=== PATIENT | female | born 1940 | race African-American/Black ===

== ENCOUNTER 2017-08-07 06:25 | Inpatient (IN) | payer OTHER ==
[2017-08-02 13:58] VITALS: BMI 24.9
[2017-08-07] MEDS ORDERED: TRANEXAMIC ACID 1000 MG/10 ML VIAL IVPUSH ONE (07:08)
[2017-08-07] MEDS ORDERED: CEFAZOLIN 1 GM/D5W 1 GRAM/50 ML BAG IVPB ONE (07:08)
[2017-08-07] MEDS ORDERED: GABAPENTIN 300 MG CAPSULE (FP) PO ONE (07:08)
[2017-08-07] MEDS ORDERED: CELECOXIB 200 MG CAPSULE PO ONE (07:08)
[2017-08-07] MEDS ORDERED: EPINEPHrine/PF 1 MG/1 ML (1:1,000) AMPULE ONE (07:18)
[2017-08-07] MEDS ORDERED: DEXAMETHASONE SOD PHOSPHATE/PF 10 MG/ML SDV ONE (07:18)
[2017-08-07] MEDS ORDERED: MIDAZOLAM HCL 2 MG/2 ML SINGLE DOSE VIAL ONE (07:19)
[2017-08-07] MEDS ORDERED: ROPIVICAINE 0.2%/MORPH PF/KETOROLAC - 51ML DISP.SYRINGE IA ONE ×2 (07:48→11:59)
[2017-08-07] MEDS ORDERED: VANCOMYCIN 1,000 MG VIAL (RESTRICTED TO ID ONLY) ONE ×2 (07:48→07:58)
[2017-08-07] MEDS ORDERED: PROPOFOL 20 ML ONE ×4 (08:39→11:20)
[2017-08-07] MEDS ORDERED: DEXAMETHASONE SOD PHOSPHATE 4 MG/1 ML VIAL ONE (08:48)
[2017-08-07] MEDS ORDERED: ceFAZolin SODIUM 1 GM VIAL ONE ×2 (08:48→12:20)
[2017-08-07] MEDS ORDERED: ONDANSETRON 4 MG/2 ML VIAL ONE (08:48)
[2017-08-07] MEDS ORDERED: TRANEXAMIC ACID 1000 MG/10 ML VIAL ONE (08:48)
[2017-08-07] MEDS ORDERED: PHENYLEPHRINE HCL 10 MG/1 ML SINGLE DOSE VIAL ONE (09:04)
[2017-08-07] MEDS ORDERED: VANCOMYCIN 1,000 MG VIAL (RESTRICTED TO ID ONLY) IVPB ONE (11:59)
[2017-08-07] MEDS ORDERED: GUM MASTIC/STORAX/MSAL/ALCOHOL 1 DRP DROPSBTL MC ONE (12:19)
--- NOTE | 2017-08-07 12:35 | OP ---
Operative Note - Note: Operative Date: 08/07/17 Pre-Operative Diagnosis: Left hip osteoarthritis, DJD Operation: Left total hip replacement Post-Operative Diagnosis: Same as Pre-op Surgeon: Daryl Beauchamp Metal Cutter: Dominic Healy Anesthesiologist/LAB TECHNOLOGIST: Mc Coy Anesthesia: Spinal Estimated Blood Loss (mls): 150 Fluid Volume Replaced (mls): 1,000 Operative Report Dictated: Yes
[2017-08-07] MEDS ORDERED: ONDANSETRON 4 MG/2 ML VIAL IVPUSH PRN ×2 (12:36→12:52)
[2017-08-07] MEDS ORDERED: MAGNESIUM HYDROX 2400MG/30ML ORAL SUSPENSION 30 ML CUP PO PRN (12:36)
[2017-08-07] MEDS ORDERED: MAG HYDROX/AL HYDROX/SIMETH 30 ML UNIT-DOSE CUP PO PRN (12:36)
--- NOTE | 2017-08-07 12:36 | SURG ---
Surgery Tradeshow Worker Note Tradeshow Worker: Dominic Healy PA-C Date of Service: 08/07/17 Diagnosis: Left hip osteoarthritis, DJD Procedure: Left total hip replacement I was present for the entirety of the operative procedure. For further detail, please refer to operative report. Visit type - Case Type Case Type: Scheduled Admission - New patient This patient is new to me today: Yes Date on this admission: 08/07/17
[2017-08-07] MEDS ORDERED: LACTATED RINGERS SOLUTION 1,000 ML IV SCH (12:45)
[2017-08-07] MEDS ORDERED: oxyCODONE HCL 5 MG TABLET PO PRN ×2 (12:52)
[2017-08-07] MEDS ORDERED: ACETAMINOPHEN 325 MG TABLET (FP) PO PRN (12:52)
[2017-08-07] MEDS ORDERED: PROMETHAZINE HCL 25 MG/1 ML VIAL IVPUSH PRN (12:52)
[2017-08-07] MEDS ORDERED: ACETAMINOPHEN 325 MG TABLET (FP) ONE (14:07)
[2017-08-07] MEDS ORDERED: VANCOMYCIN 1 GRAM (PRE-DOCKED) 1,000 MG/250 ML BAG IVPB ONE ×2 (21:00→22:00)
[2017-08-07] MEDS: CEFAZOLIN 1 GM/D5W 1 GRAM/50 ML BAG IVPB SCH (21:45)
[2017-08-07] MEDS ORDERED: GABAPENTIN 300 MG CAPSULE (FP) PO SCH (22:00)
[2017-08-07] MEDS: LABETALOL HCL 100 MG TABLET (FP) PO SCH (22:08)
[2017-08-07] MEDS: SENNOSIDES/DOCUSATE COMBO (SENNA PLUS) TABLET (UD) PO SCH (22:10)
[2017-08-07] MEDS: ASCORBIC ACID 500 MG TABLET (FP) PO SCH (22:11)
--- NOTE | 2017-08-08 01:14 | OP ---
DATE OF OPERATION: 08/07/2017 SURGEON: Daryl Beauchamp MD RETURNING OFFICER: Dominic Healy PA-C PREOPERATIVE DIAGNOSES: 1. Left hip protrusio acetabuli. 2. Osteoarthritis, left hip. POSTOPERATIVE DIAGNOSES: 1. Left hip protrusio acetabuli. 2. Osteoarthritis, left hip. SURGICAL PROCEDURE: Left total hip replacement. ANESTHESIA: Spinal and sedation. POSITION: Right lateral decubitus. INCISION: Direct superior approach. ESTIMATED BLOOD LOSS: 150 mL. INTRAVENOUS FLUIDS: See anesthesia record. SPECIMEN: Left femoral head. DRAINS: None. COMPLICATIONS: None. URINE OUTPUT: None. BACTERIOLOGY: None. TRANSFUSIONS: None. CLOSURE: Number 1 and 2-0 Vicryl and 3-0 Monocryl. INDICATIONS: The patient is a 77-year-old female who presented to our outpatient orthopedic clinic with history, physical examination, and radiographic imaging findings concerning diagnostic for osteoarthritis of the left hip. The patient was indicated for left total hip replacement in order to promote early motion and mobilization and to prevent complications associated with a sedentary lifestyle. The patient was identified in the holding area by her arm band. Long discussion was held with the patient in the presence of her family regarding the risks, benefits, and alternatives of the above mentioned procedure. The risks include but are not limited to pain, bleeding, infection, damage to surrounding structures (including nerves, blood vessels, skin ligaments, tendon, and bone), wound complications, failure of hardware/implant/reduction, need for further surgery, blood clots, myocardial infarction, pulmonary embolism, anesthesia complications, compartment syndrome, blood loss, length, loss of function, and . Benefits as mentioned above. Alternatives include no surgery. All questions were answered. The patient understood and agreed to the procedure. Informed consent was obtained, witnessed and verified. The patient's correct operative limb, the left lower extremity, was marked and the patient was taken to the operating room where she was seen by anesthesia and nursing staff. DESCRIPTION OF PROCEDURE: The patient was brought to the operating room and placed on the OR table and secured with the safety strap. Consent and the operative site were again verified with the patient, nursing, and anesthesia staff. Spinal anesthesia and sedation were then administered without complications. Then 2 g of IV Ancef and 1 g of IV vancomycin was then administered. A timeout was done, led by the attending surgeon. Preoperative orthopedic examination revealed a retroverted pelvis (an extended pelvis) with fixed flexion deformity of the hips and minimal external limb internal rotation of the left hip. Patient was positioned in the right lateral decubitus position with all bony prominences well padded. The limb was secured using a [place]-type frame. The operative site was then prepped and draped in the standard sterile fashion. Timeout was again done and the case began. A standard direct superior approach was utilized to access the left hip. The incision was maintained at approximately 10 cm. The incision was oriented from the posterior superior corner of the greater trochanter, extending proximally in line with the gluteus sheng muscle fibers. Sharp incision was taken through the skin followed by electrocautery dissection through the subcutaneous dermal tissue as well as fat the layer of the gluteus sheng muscle fascia. The fascia was incised in plane with the gluteus sheng muscle fibers, which were in the direct line and trajectory of the overlying incision. The Bacon elevator was then introduced to split the muscle fibers in line with one another, such that the underlying periarticular fat pad was exposed. Next, retractors were used under the superior and inferior bellies of the dissected gluteus sheng muscle, exposing the underlying fat pad. The fat pad was then excised off of the short external rotators of the hip as well as the inferior border of the gluteus medius muscle. The gluteus medius muscle was then retracted proximally using a retractor. The rectus muscle and the pyriformis tendon were also retracted. Next, the obturator internus tendon was isolated and released from its insertion on the posterolateral aspect of the greater trochanter. This tendon was then tagged with an Ethibond style suture and tied to the skin near the apex of the incision acting as a sling to house and protect the reflected and posteriorly retracted sciatic nerve. Next, a capsulotomy was made in crescentic fashion into the hip joint capsule. Hemostasis was achieved with electrocautery throughout the procedure. The capsular leaflets were reflected both proximally and distally. Next, the acetabular labrum was excised in part. After this, the hip was dislocated and an oscillating saw was used to make a femoral neck cut according to Sir Keegan Mathews's principles of making a femoral neck cut in a total hip replacement. Next, the femoral head was removed after a threaded Steinmann pin was driven into the femoral head on power. After this, the Lembert retractor was introduced into the periacetabular soft tissue and bone bed so as to facilitate exposure of the acetabulum. The pulvinar was then excised using electrocautery from the floor and medial wall of the acetabulum. It was apparent at this time that the hip was partially arthrofibrosed. This patient also was suffering from debilitating protrusio acetabuli on the left side. This was noted by the increased asymmetric depth with acetabular bone bed relative to a much narrower width. Next, reamers were introduced in increasing incremental fashion, starting with 43 mm and working up to 63 mm. A hemispherical ream of the bone bed was achieved without penetrating or piercing the already thin medial wall of the acetabulum. Next, a 64 trial cup was seated with solid fixation and this was followed by a 64-mm cluster Erlinda Trident cup. A 36-mm neutral liner was then introduced as well. Next, attention was turned to the femur where a box cut osteotome was used to initiate entrance into the femoral canal. Next, a canal finder was introduced on plower, once again to facilitate the entrance into the proximal femur. A lateralizing rasp was utilized to lateralize the bony preparation into the medial aspect of the greater trochanter. Next, Erlinda Accolade II system broaches were introduced in increasing size fashion from 0 up to 4. Gentle mallet strikes were used to deliver the broaches into place. Next, the broach handle was removed. A standard offset modular neck trial was fixed to the broach followed by a -5 mm head. Open reduction was then performed. The hip was taken through a range of motion and stability test and found to be completely stable at 90 degrees of flexion, 40 degrees of abduction, and 40 degrees of internal rotation. There was no sign of subluxation or dislocation in any of those positions. An AP pelvis radiograph was obtained at this point in the case to help us assess leg length and compartment orientation. All trial components were then removed and the number 4 Erlinda Accolade II stem was delivered into the femoral bone bed. This was followed by a 36-mm Biolox ceramic head that was -5 mm in length. An open reduction was performed. Throughout the case the soft tissues had been thoroughly irrigated in between most steps. At this point, the wound was again copiously irrigated. The capsule was approximated and 3 simple interrupted sutures were used to perform a primary repair of the hip capsule. This was followed by an injection into the periarticular soft tissue bed of an analgesic cocktail. Next, vancomycin powder, approximately 0.5 g, was introduced into the wound. The short external rotator that had been reflected was then released from the skin and fixed to its origin on the posterior superior. Next the gluteus sheng fascia was close using number 1 Vicryl using simple interrupted sutures and this was followed by another round of copious irrigation as well as introduction of the residual remaining 0.5 g of vancomycin powder. The subcutaneous tissues were closed primarily using number 1 and 2-0 Vicryl sutures. The skin was closed using an intradermal 3-0 Monocryl stitch. Sterile compressive dressing was applied. Hemostasis had been assured before closure. The sponge and needle counts were correct at the end of the case. The attending was present and scrubbed throughout the entire case. The patient was then transferred to a hospital bed where an AP pelvis demonstrated good overall orientation of the implants as well as a reduced hip. Patient was then transferred to the recovery room in stable condition, having tolerated the procedure well. MD CELESTINO Awan/[id number]
[2017-08-08] MEDS: CEFAZOLIN 1 GM/D5W 1 GRAM/50 ML BAG IVPB SCH (05:43)
[2017-08-08 05:53] VITALS: BP 117/53; PULSE 61; TEMP 97.6
--- NOTE | 2017-08-08 08:26 | DS ---
Physical Exam: POD #1 Per RN notes, no acute events since surgery. States the patient never asked for any pain meds! Sitting in chair at bedside without any complaint. States she got oob and ambulated to bathroom without difficulty. Physical therapy note appreciated. Voiding spontaneously. Denies n/v/f/c, CP, SOB, numbness or tingling to LLE. Last Vital Signs Temp Pulse Resp BP Pulse Ox 97.6 F 61 18 117/53 100 08/08/17 04:00 08/08/17 04:00 08/08/17 07:40 08/08/17 04:00 08/08/17 07:40 PE GENERAL: awake, alert, and fully oriented, in no acute distress. HEAD: NC. AT LUNGS: CTA bilat anteriorly HEART: RRR LLE: Aquacel dressing c/d/i. 2+ pulses, warm, well-perfused, no edema. NEUROLOGICAL: CN II-XII grossly intact. Normal speech, gait not observed. PSYCH: Normal mood, normal affect. SKIN: Warm, dry, normal turgor, no rashes or lesions noted. LABS CBC, BMP 08/08/17 07:00 08/08/17 07:00 HOSPITAL COURSE: Date of Admission:08/07/17 Date of Discharge: 08/08/17 The patient was admitted to the Med-Surg Unit after an elective repair of their left hip OA/DJD. Now, s/p Left total hip replacement. Narcotic and non-narcotic pain management control was achieved with an oral and IV approach. Inna- operative IV ABX were administered. DVT prophylaxis was achieved with SCDs and early ambulation. The patient ambulated with Physical Therapy and no services were recommended upon discharge. Narcotic script were checked with [facility] RECORDS MANAGEMENT DIRECTOR prior to escribe. The discharge instructions and an oral pain management plan were reviewed with the patient. All questions answered. Above plan discussed with Dr. Beauchamp and agreed. Minutes to complete discharge: 20 Visit type - Case Type Case Type: Scheduled Admission
[2017-08-08 08:47] LABS: ANION GAP 8 (8-16); CALCIUM 7.6 mg/dl (8.4-10.2); CO2 26 mmol/L (22-28); CREATININE 1.5 mg/dl (0.6-1.3); GLUCOSE,RANDOM 118 mg/dl (74-106)
[2017-08-08 08:50] LABS: MCH 27.6 pg (25.7-33.7); MCHC 32.3 g/dl (32.0-36.0); MEAN CELL VOLUME 85.2 fl (80-96); MEAN PLT VOLUME 10.7 fl (7.5-11.1); PLATELET COUNT 126 K/MM3 (134-434); RDW 15.5 % (11.6-15.6)
[2017-08-08] MEDS ORDERED: PANTOPRAZOLE 40 MG TABLET (FP) PO SCH (10:00)
[2017-08-08] MEDS ORDERED: ASPIRIN 81 MG CHEWABLE TABLETS PO SCH (10:00)
[2017-08-08] MEDS ORDERED: MULTIVITAMINS (DAILY MVI) TABLET (FP) PO SCH (10:00)
[2017-08-08] MEDS ORDERED: PATIENT'S OWN MEDICATION (NON-FORMULARY) (Valsartan/Hydrochlorothiazide [Valsartan-Hctz 32 PO SCH (10:00)
[2017-08-08] MEDS ORDERED: CELECOXIB 200 MG CAPSULE PO SCH (10:00)
[2017-08-08] MEDS ORDERED: HYDROCHLOROTHIAZIDE 25 MG TABLET (FP) PO SCH (10:00)
[2017-08-08] MEDS ORDERED: VALSARTAN 160 MG TABLET (UD) PO SCH (10:00)
[2017-08-08] MEDS ORDERED: amLODIPine BESYLATE 10 MG TABLET (FP) PO SCH (10:00)
[2017-08-08] MEDS ORDERED: ATORVASTATIN CA 20 MG TABLET (FP) PO SCH (10:00)
[2017-08-08] MEDS: SENNOSIDES/DOCUSATE COMBO (SENNA PLUS) TABLET (UD) PO SCH (10:36)
[2017-08-08] MEDS: LABETALOL HCL 100 MG TABLET (FP) PO SCH (10:36)
[2017-08-08] MEDS: ASCORBIC ACID 500 MG TABLET (FP) PO SCH (10:37)
--- NOTE | 2017-08-08 12:40 | PN ---
Progress Note (short form) - Note Progress Note: Pot op day#1.S/P Left total hip replacement under spinal anesthesia with paraverteberal block uneventful.Patient stable and does not c/o pain.No any anesthesia related problem.Patient DC from the anesthesia care.
--- NOTE | 2017-08-12 13:53 | PATH ---
Surgical Pathology Report Patient Name: VIRGINIA PARKER Med. Rec. #: [id number] /Age/Gender: 1940 (Age: 77) / F Account: [id number] Location: [facility] MED-SURG Taken: 08/07/2017 Received: 08/07/2017 Reported: 08/12/2017 Physicians: Daryl Beauchamp M.D. Specimen(s) Received LEFT FEMORAL HEAD Clinical History B/L hip osteoarthritis Final Diagnosis FEMORAL HEAD, LEFT, TOTAL HIP REPLACEMENT: DEGENERATIVE JOINT DISEASE. Electronically Signed Darline Zaman M.D. Gross Description Received in formalin, labeled "left femoral head," is a 4.3 x 4.3 x 3.6 cm. femoral head with 1.2 cm in length portion of femoral neck attached. The margin of resection is smooth. There is a 3.7 cm in greatest dimension pitted area of eburnation present. The remaining articular surface is hubbard-yellow and focally granular. The underlying trabecular bone is yellow and hard. Stars Coordinator sections are submitted in one cassette, following decalcification. 08/08/2017 [facility]08/08/2017
== END 2017-08-08 13:16 | disposition home health service (06) | DRG 470 ==
LOC: FM/S 06:25
PROVIDERS: ADMIT Orthopaedic Surgery Orthopaedic Surgery of the Spine; ATTEND Orthopaedic Surgery Adult Reconstructive Orthopaedic Surgery
PROC: 0SRB0JA Replacement of Left Hip Joint with Synthetic Substitute, Uncemented, Open Approach (ICD-10-PCS; principal; 2017-08-07 08:00)
DX: M16.12 Unilateral primary osteoarthritis, left hip (principal); M24.7 Protrusio acetabuli; E11.9 Type 2 diabetes mellitus without complications; I10 Essential (primary) hypertension; Z86.73 Personal history of transient ischemic attack (TIA), and cerebral infarction without residual deficits; E78.00 Pure hypercholesterolemia, unspecified; Z87.891 Personal history of nicotine dependence
CPT/HCPCS: 36415; 73502-TC-LT; 80048; 85027; 88304-TC; 88311-TC; 94760; 97116-GP; 97162-GP

== ENCOUNTER 2018-07-23 05:59 | Inpatient (IN) | payer OTHER ==
[2018-07-21 12:09] VITALS: BMI 26.8
[~2018-07-23 05:59] MED LIST: CEFAZOLIN 2 GM in DEXTROSE 5%-WATER - 50 ML IVPB ONE; CEFAZOLIN 2 GM/D5W 2 GM/50 ML ML IVPB ONE; TRANEXAMIC ACID 1000 MG/10 ML VIAL IVPUSH ONE; VANCOMYCIN 1 GRAM (PRE-DOCKED) 1,000 MG/250 ML BAG IVPB ONE; VANCOMYCIN 1,000 MG in DEXTROSE 5%-WATER - 250 ML IVPB ONE
[2018-07-23] MEDS ORDERED: ceFAZolin SODIUM 1 GM VIAL ONE ×2 (07:09→10:21)
[2018-07-23] MEDS ORDERED: VANCOMYCIN 1,000 MG VIAL (RESTRICTED TO ID ONLY) ONE (07:09)
[2018-07-23] MEDS ORDERED: EPINEPHrine/PF 1 MG/1 ML (1:1,000) AMPULE ONE (07:10)
[2018-07-23] MEDS ORDERED: KETOROLAC TROMETHAMINE 60 MG/2 ML VIAL ONE (07:10)
[2018-07-23] MEDS ORDERED: BUPIVACAINE HCL/PF 2.5 MG/ML - 30 ML VIAL IJ ONE (07:11)
[2018-07-23] MEDS ORDERED: morphine CARPU-JECT 10 MG/1 ML DISP.SYRIN ONE (07:13)
--- NOTE | 2018-07-23 07:22 | HP ---
History & Physical Update - History History: No Change - Physical Physical: No Change - Assessment Assessment: No Change - Plan Plan: No Change (Full H&P i chart from 07/15/2018)
[2018-07-23] MEDS ORDERED: BUPIVACAINE HCL/PF (5 MG/ML) 30 ML VIAL IJ ONE (07:35)
[2018-07-23] MEDS ORDERED: DEXAMETHASONE SOD PHOSPHATE/PF 10 MG/ML SDV ONE (07:35)
[2018-07-23] MEDS ORDERED: LIDOCAINE HCL/PF 2% SDV 5ML VIAL ONE (07:37)
[2018-07-23] MEDS ORDERED: MIDAZOLAM HCL 2 MG/2 ML SINGLE DOSE VIAL ONE (07:41)
[2018-07-23] MEDS ORDERED: BUPIVACAINE HCL/PF 0.5% (5MG/ML) 10 ML VIAL ONE (08:11)
[2018-07-23] MEDS ORDERED: ONDANSETRON 4 MG/2 ML VIAL ONE ×2 (08:23→12:04)
[2018-07-23] MEDS ORDERED: ONDANSETRON 4 MG/2 ML VIAL IVPUSH PRN ×2 (09:35→11:09)
[2018-07-23] MEDS ORDERED: TRANEXAMIC ACID 1000 MG/10 ML VIAL ONE (10:26)
[2018-07-23] MEDS ORDERED: BENZOIN TINCTURE SWABSTICK TP ONE (10:55)
--- NOTE | 2018-07-23 11:08 | OP ---
Operative Note - Note: Operative Date: 07/23/18 Pre-Operative Diagnosis: Right hip DJD Operation: Right total hip replacement Implants: [place]. Cup - Trident II-Tritanium, 52mm; 1 x 25mm acetabular screw. Poly liner - 36mm, neutral. Stem - Accolade II, #4, 127 deg NSA. Head - 36mm, -5mm Delta Ceramic/Biolox Surgeon: Daryl Beauchamp Bail Bondsman: Jules Beauchamp Anesthesiologist/DENTAL HYGIENIST: Tata Bryant Anesthesia: Spinal Specimens Removed: Right femoral head Estimated Blood Loss (mls): 75 Fluid Volume Replaced (mls): 1,000 Operative Report Dictated: Yes
[2018-07-23] MEDS ORDERED: MAGNESIUM HYDROX 2400MG/30ML ORAL SUSPENSION 30 ML CUP PO PRN (11:09)
[2018-07-23] MEDS ORDERED: MAG HYDROX/AL HYDROX/SIMETH 30 ML UNIT-DOSE CUP PO PRN (11:09)
--- NOTE | 2018-07-23 11:09 | PN ---
Progress Note (short form) - Note Progress Note: 78F s/p RIGHT ROBERTO POD #0. -Pain control. -DVT PPx: -Chemical: ASA 81mg PO BID x 6 weeks. -Mechanical: MICHELE's, SCD's. -Incentive spirometry. -PT/OT/Rehab, OOB. -WBAT RLE. -Post-op Ancef x 2 doses. -f/u post-op TOV. -f/u AM labs. -Diet as tolerated. -Care per medical hospitalist team. -Discharge planning. -Will follow. Daryl Beauchamp MD (Orthopaedic Surgery).
[2018-07-23] MEDS ORDERED: LACTATED RINGERS SOLUTION 1,000 ML IV SCH (11:15)
[2018-07-23] MEDS: ACETAMINOPHEN 325 MG TABLET (FP) PO SCH ×2 (11:50→18:40)
[2018-07-23] MEDS ORDERED: oxyCODONE HCL 5 MG TABLET ONE (12:55)
[2018-07-23] MEDS: oxyCODONE HCL 5 MG TABLET PO PRN ×3 (12:56→21:00)
--- NOTE | 2018-07-23 13:39 | CONSULT ---
Consultation: REQUESTING PROVIDER: Dr Beauchamp CONSULT REQUEST: We have been asked to medically evaluate this patient for medical management. HISTORY OF PRESENT ILLNESS: patient is a 78-year-old female with a past medical history diabetes mellitus (diet-controlled), hypertension, HLD, osteoarthritis, CKD stage III. she was admitted to the medical surgical floor after an elective right total hip replacement, Dr Beauchamp, spinal anesthesia, . REVIEW OF SYSTEMS: CONSTITUTIONAL: Absent: fever, chills, diaphoresis, generalized weakness, malaise, loss of appetite, weight change HEENT: Absent: rhinorrhea, nasal congestion, throat pain, throat swelling, difficulty swallowing, mouth swelling, ear pain, eye pain, visual changes CARDIOVASCULAR: Absent: chest pain, syncope, palpitations, irregular heart rate, lightheadedness , peripheral edema RESPIRATORY: Absent: cough, shortness of breath, dyspnea with exertion, orthopnea, wheezing, stridor, hemoptysis GASTROINTESTINAL: Absent: abdominal pain, abdominal distension, nausea, vomiting, diarrhea, constipation, melena, hematochezia GENITOURINARY: Absent: dysuria, frequency, urgency, hesitancy, hematuria, flank pain, genital pain MUSCULOSKELETAL: Absent: myalgia, arthralgia, joint swelling, back pain, neck pain SKIN: Absent: rash, itching, pallor HEMATOLOGIC/IMMUNOLOGIC: Absent: easy bleeding, easy bruising, lymphadenopathy, frequent infections ENDOCRINE: Absent: unexplained weight gain, unexplained weight loss, heat intolerance, cold intolerance NEUROLOGIC: Absent: headache, focal weakness or paresthesias, dizziness, unsteady gait, seizure, mental status changes, bladder or bowel incontinence PSYCHIATRIC: Absent: anxiety, depression, suicidal or homicidal ideation, hallucinations. PHYSICAL EXAMINATION Vital Signs - 24 hr 07/23/18 07/23/18 07/23/18 06:41 11:15 11:20 Temperature 98.2 F 98.2 F Pulse Rate 62 62 63 Respiratory 18 18 18 Rate Blood Pressure 139/75 166/70 147/89 O2 Sat by Pulse 100 100 Oximetry (%) 07/23/18 07/23/18 07/23/18 11:25 11:30 11:45 Temperature Pulse Rate 61 60 65 Respiratory 18 18 18 Rate Blood Pressure 170/75 177/73 H 172/77 H O2 Sat by Pulse 100 100 100 Oximetry (%) 07/23/18 07/23/1807/23/18 12:00 12:15 12:30 Temperature Pulse Rate 63 64 58 L Respiratory 18 18 18 Rate Blood Pressure 180/77 H 157/67 158/71 O2 Sat by Pulse 100 92 L 100 Oximetry (%) 07/23/18 07/23/18 12:45 12:51 Temperature Pulse Rate 61 61 Respiratory 18 18 Rate Blood Pressure 163/71 163/71 O2 Sat by Pulse 100 Oximetry (%) GENERAL: Awake, alert, and fully oriented, in no acute distress. HEAD: Normal with no signs of trauma. EYES: Pupils equal, round and reactive to light, extraocular movements intact, sclera anicteric, conjunctiva clear. No lid lag. EARS, NOSE, THROAT: Ears normal, nares patent, oropharynx clear without exudates. Moist mucous membranes. NECK: Normal range of motion, supple without lymphadenopathy, JVD, or masses. LUNGS: Breath sounds equal, clear to auscultation bilaterally. No wheezes, and no crackles. No accessory muscle use. HEART: Regular rate and rhythm, normal S1 and S2 without murmur, rub or gallop. ABDOMEN: Soft, nontender, not distended, normoactive bowel sounds, no guarding, no rebound, no masses. No hepatomegaly or splenomegaly. MUSCULOSKELETAL: Normal range of motion at all joints. No bony deformities or tenderness. No CVA tenderness. UPPER EXTREMITIES: 2+ pulses, warm, well-perfused. No cyanosis. No clubbing. Cap refill <2 seconds. No peripheral edema. LOWER EXTREMITIES: surgical dressing noted to the right lateral hip, less than 3 second capillary refill, +2 pedal pulses, SCD/Thomas's, 2+ pulses, warm, well- perfused. No calf tenderness. No peripheral edema. NEUROLOGICAL: Cranial nerves II-XII intact. Normal speech. Normal gait. PSYCHIATRIC: Cooperative. Good eye contact. Appropriate mood and affect. SKIN: Warm, dry, normal turgor, no rashes or lesions noted. Laboratory Results - last 24 hr 07/23/18 11:40 POC Glucometer 82 Active Medications Generic Name Dose Route Start Last Admin Trade Name Freq PRN Reason Stop Dose Admin Acetaminophen 650 mg 07/23/18 18:00 07/23/18 11:50 Tylenol - PO 07/26/18 17:59 650 mg Q6H KIANNA Administration Al Hydroxide/Mg Hydroxide 30 ml 07/23/18 11:09 Mylanta Oral Suspension - PO Q4H PRN DYSPEPSIA Amlodipine Besylate 10 mg 07/23/18 10:00 Norvasc - PO DAILY KIANNA Aspirin 81 mg 07/23/18 22:00 Asa - PO BID KIANNA Fentanyl 25 mcg 07/23/18 09:35 07/23/18 12:15 Sublimaze Injection - IVPUSH 25 mcg [id number] PRN Administration PAIN-PACU ORDER X 4 DOSES ONLY Cefazolin Sodium 2 gm/ 50 mls @ 100 mls/hr 07/23/18 00:21 Dextrose IVPB 07/23/18 00:50 ANES-PREOP ONE Vancomycin HCl 1,000 mg/ 250 mls @ 250 mls/hr 07/23/18 00:21 Dextrose IVPB 07/23/18 01:20 ONCE ONE Protocol Lactated Ringer's 1,000 mls @ 125 mls/hr 07/23/18 09:45 Lactated Ringers Solution IV [facility] Cefazolin Sodium 1 gm in 50 mls @ 100 mls/hr 07/23/18 14:00 Ancef 1 Gm Premixed Ivpb - IVPB 07/23/18 22:29 Q8H KIANNA Lactated Ringer's 1,000 mls @ 100 mls/hr 07/23/18 11:15 Lactated Ringers Solution IV 07/24/18 06:00 [facility] Labetalol HCl 300 mg 07/23/18 10:00 Normodyne - PO BID [facility] Magnesium Hydroxide 30 ml 07/23/18 11:09 Milk Of Magnesia - PO PRN PRN CONSTIPATION Ondansetron HCl 4 mg 07/23/18 09:35 Zofran Injection IVPUSH Q6H PRN NAUSEA AND/OR VOMITING Ondansetron HCl 4 mg 07/23/18 11:09 07/23/18 12:00 Zofran Injection IVPUSH 4 mg Q6H PRN Administration NAUSEA Oxycodone HCl 5 mg 07/23/18 09:37 07/23/18 12:56 Roxicodone - PO 5 mg Q3H PRN Administration PAIN LEVEL 1-5 Oxycodone HCl 10 mg 07/23/18 09:37 Roxicodone - PO Q3H PRN PAIN LEVEL 6-10 Pantoprazole Sodium 40 mg 07/24/18 10:00 Protonix - PO DAILY KIANNA Senna/Docusate Sodium 2 tablet 07/23/18 22:00 Pericolace - PO BID KIANNA Tranexamic Acid 1,000 mg 07/23/18 00:21 Tranexamic Acid - IVPUSH 07/23/18 00:22 ONCE ONE ASSESSMENT/PLAN: 1) MS right total hip replacement, pod #0 - prn pain medication - strict monitoring of hgb - physical therapy as per orthopedist 2) cardiovascular hypertensoin - continue home medications--> labetolol, losartan, and norvasc - strict b/p monitoring q4h 3) nephrology ckd stage III -pre-op creatine 1.4, close following - avoid any nephrotoxic agents Dispo: We will continue to follow the patient. Thank you for this consultative opportunity. Visit type - Emergency Visit Emergency Visit: No - New Patient This patient is new to me today: No - Critical Care Critical Care patient: No
[2018-07-23] MEDS: CEFAZOLIN 1 GM/D5W 1 GM/50 ML BAG IVPB SCH ×2 (14:00→22:10)
[2018-07-23] MEDS: LACTATED RINGERS SOLUTION 1,000 ML IV SCH (14:28)
[2018-07-23] MEDS: amLODIPine BESYLATE 10 MG TABLET (FP) PO SCH (14:29)
[2018-07-23] MEDS: LABETALOL HCL 100 MG TABLET (FP) PO SCH ×2 (14:29→22:10)
[2018-07-23] MEDS: SENNOSIDES/DOCUSATE COMBO (SENNA PLUS) TABLET (UD) PO SCH (22:10)
[2018-07-23] MEDS: ASPIRIN 81 MG CHEWABLE TABLETS PO SCH (22:10)
[2018-07-24] MEDS: oxyCODONE HCL 5 MG TABLET PO PRN ×2 (05:00→08:23)
[2018-07-24] MEDS: ACETAMINOPHEN 325 MG TABLET (FP) PO SCH ×5 (05:25→23:49)
--- NOTE | 2018-07-24 07:35 | PN ---
Progress Note (short form) - Note Progress Note: POD #1 Doing well. Sitting in chair at bedside. C/o incisional tenderness. Adequate pain control via meds ordered. Hasn't ambulated yet. Denies n/v/f/c, CP, palpitations or SOB. Last Vital Signs Temp Pulse Resp BP Pulse Ox 99.0 F 65 18 143/61 96 07/24/18 06:00 07/24/18 06:00 07/24/18 06:00 07/24/18 06:00 07/24/18 07:15 Gen: nad LE: right hip dressing c/d/i. No hematoma. No oozing. Leg/foot warm. No swelling /edema. SCDs bilat Problem List - Problems (1) Degenerative joint disease of right hip Assessment/Plan: POD #1 s/p Right total hip replacement - Pain control. -DVT PPx: -Chemical: ASA 81 mg po BID x 6 weeks -Mechanical: MICHELE's, SCD's -Incentive Spirometry. -PT/OT/Rehab, OOB. -WBAT LLE RLE. -R hip precautions. -f/u am labs. -f/u post-op TOV. -Hip abduction pillow -Care per medical hospitalist team. -Discharge planning: f/u [facility] [place] office general merchandise salesperson for appointment: -Will follow. Code(s): M16.11 - UNILATERAL PRIMARY OSTEOARTHRITIS, RIGHT HIP
[2018-07-24 08:18] LABS: ANION GAP 7 MMOL/L (8-16); BLOOD UREA NITROGEN 34 mg/dl (7-18); CALCIUM 8.5 mg/dl (8.4-10.2); CHLORIDE 108 mmol/L (98-107); CO2 27 mmol/L (22-28); CREATININE 1.8 mg/dl (0.6-1.3); GLUCOSE,RANDOM 101 mg/dl (74-106); SODIUM 142 mmol/L (136-145)
[2018-07-24 08:22] LABS: HEMATOCRIT 31.6 % (32.4-45.2); HEMOGLOBIN 10.2 GM/dl (10.7-15.3); MCH 27.1 pg (25.7-33.7); MCHC 32.2 g/dl (32.0-36.0); MEAN CELL VOLUME 84.2 fl (80-96); MEAN PLT VOLUME 10.5 fl (7.5-11.1); PLATELET COUNT 129 K/MM3 (134-434); RBC 3.75 M/mm3 (3.60-5.2); WHITE BLOOD COUNT 7.6 K/mm3 (4.0-10.8)
--- NOTE | 2018-07-24 08:28 | PN ---
Physical Exam: SUBJECTIVE: Patient seen and examined, patient is sitting in bedside recliner reports pain to right hip upon movement denies any paresthesia to the extremity. participated in physical therapy today. OBJECTIVE:patient is a 78-year-old female with a past medical history diabetes mellitus (diet-controlled), hypertension, HLD, osteoarthritis, CKD stage III. she was admitted to the medical surgical floor after an elective right total hip replacement, Dr Beauchamp, spinal anesthesia, 07/23/2018. Vital Signs Period Temp Pulse Resp BP Sys/Cannon Pulse Ox Last 24 Hr 97.5 F-99.0 F 58-71 16-18 124-180/61-89 92-100 GENERAL: The patient is awake, alert, and fully oriented, in no acute distress. HEAD: Normal with no signs of trauma. EYES: PERRL, extraocular movements intact, sclera anicteric, conjunctiva clear. No ptosis. ENT: Ears normal, nares patent, oropharynx clear without exudates, moist mucous membranes. NECK: Trachea midline, full range of motion, supple. LUNGS: Breath sounds equal, clear to auscultation bilaterally, no wheezes, no crackles, no accessory muscle use. HEART: Regular rate and rhythm, S1, S2 without murmur, rub or gallop. ABDOMEN: Soft, nontender, nondistended, normoactive bowel sounds, no guarding, no rebound, no hepatosplenomegaly, no masses. EXTREMITIES: 2+ pulses, warm, well-perfused, no edema. RIGHT LOWER EXTREMITY: dressing cdi, less than 3 second cappilary refilll, + pedal pulse NEUROLOGICAL: Cranial nerves II through XII grossly intact. Normal speech, gait not observed. PSYCH: Normal mood, normal affect. SKIN: Warm, dry, normal turgor, no rashes or lesions noted Laboratory Results - last 24 hr 07/23/18 07/24/18 07/24/18 11:40 07:44 07:44 WBC 7.6 RBC 3.75 Hgb 10.2 L Hct 31.6 L MCV 84.2 MCH 27.1 MCHC 32.2 RDW 15.0 Plt Count 129 L MPV 10.5 Sodium 142 Potassium 4.0 Chloride 108 H Carbon Dioxide 27 Anion Gap 7 L BUN 34 H Creatinine 1.8 H Creat Clearance w eGFR 27.21 POC Glucometer 82 Random Glucose 101 Calcium 8.5 Active Medications Generic Name Dose Route Start Last Admin Trade Name Freq PRN Reason Stop Dose Admin Acetaminophen 650 mg 07/23/18 18:00 07/24/18 06:26 Tylenol - PO 07/26/18 17:59 Not Given Q6H KIANNA Al Hydroxide/Mg Hydroxide 30 ml 07/23/18 11:09 Mylanta Oral Suspension - PO Q4H PRN DYSPEPSIA Amlodipine Besylate 10 mg 07/23/18 10:00 07/23/18 14:29 Norvasc - PO Not Given DAILY [facility] Aspirin 81 mg 07/23/18 22:00 07/23/18 22:10 Asa - PO 81 mg BID KIANNA Administration Lactated Ringer's 1,000 mls @ 125 mls/hr 07/23/18 09:45 07/23/18 14:28 Lactated Ringers Solution IV Not Given ASDIR [facility] Labetalol HCl 300 mg 07/23/18 10:00 07/23/18 22:10 Normodyne - PO 300 mg BID [facility] Administration Losartan Potassium 50 mg 07/24/18 10:00 Cozaar - PO DAILY [facility] Magnesium Hydroxide 30 ml 07/23/18 11:09 Milk Of Magnesia - PO PRN PRN CONSTIPATION Ondansetron HCl 4 mg 07/23/18 11:09 07/23/18 12:00 Zofran Injection IVPUSH 4 mg Q6H PRN Administration NAUSEA Oxycodone HCl 5 mg 07/23/18 09:37 07/23/18 15:11 Roxicodone - PO 5 mg Q3H PRN Administration PAIN LEVEL 1-5 Oxycodone HCl 10 mg 07/23/18 09:37 07/24/18 08:23 Roxicodone - PO 10 mg Q3H PRN Administration PAIN LEVEL 6-10 Pantoprazole Sodium 40 mg 07/24/18 10:00 Protonix - PO DAILY [facility] Senna/Docusate Sodium 2 tablet 07/23/18 22:00 07/23/18 22:10 Pericolace - PO 2 tablet BID [facility] Administration ASSESSMENT/PLAN: 1) MS right total hip replacement, pod #1 - prn pain medication - strict monitoring of hgb - physical therapy as per orthopedist 2) cardiovascular hypertensoin - continue home medications--> labetolol and norvasc, will hold losartan secondary to elevated creatine - strict b/p monitoring q4h 3) nephrology ckd stage III -pre-op creatine 1.4, repeat today 1.8, close following - avoid any nephrotoxic agents Dispo: We will continue to follow the patient. Thank you for this consultative opportunity. Visit type - Emergency Visit Emergency Visit: Yes ED Registration Date: 07/23/18 Care time: The patient presented to the Emergency Department on the above date and was hospitalized for further evaluation of their emergent condition. - New Patient This patient is new to me today: No - Critical Care Critical Care patient: No - Discharge Referral Referred to [facility] No
[2018-07-24] MEDS: amLODIPine BESYLATE 10 MG TABLET (FP) PO SCH (09:38)
[2018-07-24] MEDS: SENNOSIDES/DOCUSATE COMBO (SENNA PLUS) TABLET (UD) PO SCH ×2 (09:38→22:16)
[2018-07-24] MEDS: PANTOPRAZOLE 40 MG TABLET (FP) PO SCH (09:38)
[2018-07-24] MEDS: ASPIRIN 81 MG CHEWABLE TABLETS PO SCH ×2 (09:38→22:16)
[2018-07-24] MEDS: LABETALOL HCL 100 MG TABLET (FP) PO SCH ×2 (09:38→22:11)
[2018-07-24] MEDS ORDERED: LOSARTAN POTASSIUM 50 MG TABLET (FP) PO SCH (10:00)
[2018-07-24] MEDS: LACTATED RINGERS SOLUTION 1,000 ML IV SCH (12:51)
--- NOTE | 2018-07-24 15:06 | PN ---
Progress Note (short form) - Note Progress Note: 78F POD1 s/p R THR under spinal anesthetic with peripheral nerve blocks for post operative pain relief. Pt states that pain is well controlled and reports no anesthetic complications. AVSS. Motor and sensory exam intact in bilateral lower extremities. Continue current regimen.
[2018-07-25] MEDS: oxyCODONE HCL 5 MG TABLET PO PRN ×2 (05:36→09:20)
[2018-07-25] MEDS: ACETAMINOPHEN 325 MG TABLET (FP) PO SCH ×2 (05:36→13:48)
[2018-07-25 06:32] VITALS: TEMP 98.6
--- NOTE | 2018-07-25 07:09 | PN ---
Progress Note (short form) - Note Progress Note: POD #2 Doing well. Sitting in chair at bedside. C/o incisional tenderness. Adequate pain control via meds ordered. Ambulating a little with (cane assist). No notes from PT indicating patient's progress. Her Cr was slightly elevated 1.8 yesterday (pre-op 1.4, h/o CKD). Tolerating PO diet. Voiding spontaneously. Per notes, patient refusing to wear her SCDs despite being educated as to their importance. Denies n/v/f/c, CP, palpitations, SOB, numbness/tingling to LE. Last Vital Signs Temp Pulse Resp BP Pulse Ox 98.6 F 76 18 129/60 98 07/25/18 06:00 07/25/18 06:00 07/25/18 06:00 07/25/18 06:00 07/25/18 06:00 CBC, BMP 11 07:44 07/24/18 07:44 Gen: nad LE: right hip dressing c/d/i. Leg/foot warm. No swelling/edema. Problem List - Problems (1) Degenerative joint disease of right hip Assessment/Plan: POD #2 s/p Right total hip replacement - Pain control. -DVT PPx: -Chemical: ASA 81 mg po BID x 6 weeks -Mechanical: MICHELE's, SCD's -Incentive Spirometry. -PT/OT/Rehab, OOB. -WBAT RLE. -R hip precautions. -f/u BMP -Hip abduction pillow -Care per medical hospitalist team. -Discharge planning: f/u [facility] [place] [facility] telecommunications operator for appointment: -Will follow. Code(s): M16.11 - UNILATERAL PRIMARY OSTEOARTHRITIS, RIGHT HIP Problem List - Problems (1) Degenerative joint disease of right hip Code(s): M16.11 - UNILATERAL PRIMARY OSTEOARTHRITIS, RIGHT HIP
[2018-07-25 07:49] LABS: BASO % 0.3 % (0-2.0); EOS % 3.9 % (0-4.5); HEMATOCRIT 32.4 % (32.4-45.2); HEMOGLOBIN 10.5 GM/dl (10.7-15.3); LYMPH % 12.1 % (8-40); MCH 27.4 pg (25.7-33.7); MCHC 32.4 g/dl (32.0-36.0); MEAN CELL VOLUME 84.5 fl (80-96); MEAN PLT VOLUME 10.8 fl (7.5-11.1); MONO % 11.5 % (3.8-10.2); NEUT % 72.2 % (42.8-82.8); PLATELET COUNT 136 K/MM3 (134-434); RBC 3.83 M/mm3 (3.60-5.2); RDW 15.2 % (11.6-15.6); WHITE BLOOD COUNT 7.7 K/mm3 (4.0-10.8)
[2018-07-25 08:01] LABS: ANION GAP 7 MMOL/L (8-16); BLOOD UREA NITROGEN 29 mg/dl (7-18); CALCIUM 8.7 mg/dl (8.4-10.2); CHLORIDE 108 mmol/L (98-107); CO2 26 mmol/L (22-28); CREATININE 1.5 mg/dl (0.6-1.3); GLUCOSE,RANDOM 108 mg/dl (74-106); MAGNESIUM 1.8 mg/dL (1.8-2.4); PHOSPHOROUS 2.9 mg/dl (2.5-4.6); POTASSIUM 3.9 mmol/L (3.5-5.1); SODIUM 141 mmol/L (136-145)
[2018-07-25 09:18] VITALS: BP 131/52; PULSE 70
[2018-07-25] MEDS: PANTOPRAZOLE 40 MG TABLET (FP) PO SCH (09:19)
[2018-07-25] MEDS: ASPIRIN 81 MG CHEWABLE TABLETS PO SCH (09:19)
[2018-07-25] MEDS: amLODIPine BESYLATE 10 MG TABLET (FP) PO SCH (09:19)
[2018-07-25] MEDS: LABETALOL HCL 100 MG TABLET (FP) PO SCH (09:19)
[2018-07-25] MEDS: SENNOSIDES/DOCUSATE COMBO (SENNA PLUS) TABLET (UD) PO SCH (09:19)
--- NOTE | 2018-07-25 09:52 | DS ---
"Physical Exam: SUBJECTIVE: Patient seen and examined, patient reports minimal pain to the right lower extremity upon movement denies any paresthesias to the extremity, patient ambulated with physical therapists and walker today patient denies any chest pain or shortness of breath. OBJECTIVE: patient is a 78-year-old female with a past medical history diabetes mellitus (diet-controlled), hypertension, HLD, osteoarthritis, CKD stage III. she was admitted to the medical surgical floor after an elective right total hip replacement, Dr Beauchamp, spinal anesthesia, 07/23/2018. Vital Signs Period Temp Pulse Resp BP Sys/Cannon Pulse Ox Last 24 Hr 98 F-98.8 F 58-98 16-18 126-156/52-67 97-100 PHYSICAL EXAM GENERAL: The patient is awake, alert, and fully oriented, in no acute distress. HEAD: Normal with no signs of trauma. EYES: PERRL, extraocular movements intact, sclera anicteric, conjunctiva clear. No ptosis. ENT: Ears normal, nares patent, oropharynx clear without exudates, moist mucous membranes. NECK: Trachea midline, full range of motion, supple. LUNGS: Breath sounds equal, clear to auscultation bilaterally, no wheezes, no crackles, no accessory muscle use. HEART: Regular rate and rhythm, S1, S2 without murmur, rub or gallop. ABDOMEN: Soft, nontender, nondistended, normoactive bowel sounds, no guarding, no rebound, no hepatosplenomegaly, no masses. EXTREMITIES: 2+ pulses, warm, well-perfused, no edema. RIGHT LOWER EXTREMITY: dressing cdi, less than 3 second cappilary refilll, + pedal pulse NEUROLOGICAL: Cranial nerves II through XII grossly intact. Normal speech, gait not observed. PSYCH: Normal mood, normal affect. SKIN: Warm, dry, normal turgor, no rashes or lesions noted LABS Laboratory Results - last 24 hr 07/25/18 07/25/18 07:36 07:36 WBC 7.7 RBC 3.83 Hgb 10.5 L Hct 32.4 MCV 84.5 MCH 27.4 MCHC 32.4 RDW 15.2 Plt Count 136 MPV 10.8 Absolute Neuts (auto) 5.6 Neutrophils % 72.2 Lymphocytes % 12.1 Monocytes % 11.5 H Eosinophils % 3.9 Basophils % 0.3 Sodium 141 Potassium 3.9 Chloride 108 H Carbon Dioxide 26 Anion Gap 7 L BUN 29 H Creatinine 1.5 H Creat Clearance w eGFR 33.58 Random Glucose 108 H Calcium 8.7 Phosphorus 2.9 Magnesium 1.8 HOSPITAL COURSE: patient is admitted to medical surgical floor on 07/23/2018 after an elective right total hip replacement with spinal anesthesia Dr. Beauchamp. She ambulateted with the physcial therapist on post operative day 1. patient will received home physical therapy after discharge. Pain was controlled with both narcotic and nonnarcotic pain medication. Hemoglobin remained stable throughout admission. She was treated with perioperative antibiotics. Patient does have a past medical history of hypertension, labetalol and Norvasc was continued throughout admission Blood pressure remained at goal. Creatinine was noted to be elevated on postoperative day 2 patient does have a past medical history of CK D stage III. Repeat creatine today was 1.5. Repeat creatinine was held throughout admission secondary to elevated creatinine. PLAN: - discharge home with [facility] - return precautions reviewed with patient and daughter, all questions answered , patient verbalizes understanding. Date of Admission:07/23/18 Date of Discharge: 07/25/18 Minutes to complete discharge: 45 Discharge Summary Reason For Visit: OSTEOARTHRITIS RIGHT HIP Current Active Problems Degenerative joint disease of right hip (Acute) Condition: Stable - Instructions Diet, Activity, Other Instructions: Dr. Beauchamp Discharge Instructions for Hip Replacement Post Operative Instructions Physical activity Physical Therapist will come to your home for the first 5 days. You will be set up with outpatient PT at your first post-operative visit. Use assistive devices for ambulation at all times. Weight bearing as tolerated on your surgical side. Wound care Leave your surgical dressing in place. Do not change the dressing until seen by your surgeon in the office. You may shower, no baths. Do not submerge your incision. Do not apply any ointments or lotions to your incision. Please call the office if your dressing is soiled/dirty or is falling off. Apply Graduated Compression Stockings (TEDS) to both lower extremities-remove daily for hygiene ONLY. Diet There are no dietary restrictions. Eat healthy, high-fiber foods. Drink 6 to 8 glasses of liquid each day. This will assist in keeping your bowels are regular. Pain management Any pain prescription medication ordered should be taken as prescribed for moderate to severe pain. Tylenol for minimal pain and oxycodone for severe pain. Posterior Hip Precautions: Do not cross the leg you had surgery on over your other leg. (Do not cross your legs.)Use an elevated toilet seat. Do not sit on low chairs or beds. Use purple pillow (abductor) when lying in bed. Take Aspirin 81 mg two times a day for a total of 6 weeks to prevent blood clots. Call Dr. Beauchamp for any of the following: Severe pain not relieved by medication Fever of 101 or higher Excessive bleeding or drainage on dressing Inability to urinate If you experience chest pain or shortness of breath, please seek emergency care immediately. Please call the office at to confirm your post-op appointment for the week following surgery. This report was requested by: Esther Villanueva | Reference #: [id number] Referrals: Jules Beauchamp MD [Staff Physician] - Disposition: [facility]/HOME HEALTH CARE - Home Medications Comprehensive Discharge Medication List: Ambulatory Orders Amlodipine Besylate 10 mg PO DAILY 08/02/17 Atorvastatin Ca [Lipitor] 20 mg PO DAILY 08/02/17 Labetalol HCl 300 mg PO BID 08/02/17 This patient is new to me today: No Emergency Visit: No Critical Care patient: No - Discharge Referral Referred to [facility] No"
[2018-07-25] MEDS: LACTATED RINGERS SOLUTION 1,000 ML IV SCH (10:00)
--- NOTE | 2018-07-25 13:30 | OP ---
Date of Operation: 07/23/2018 Surgeon: Daryl Beauchamp MD Soft Work Wrapper Examiner: Jules Beauchamp MD & Esther Villanueva PA-C Pre-Operative Diagnosis: Right hip osteoarthritis Post-Operative Diagnosis: Right hip osteoarthritis Surgical Procedure: Right total hip replacement via direct superior approach Anaesthesia: Spinal, sedation. Position: Left lateral decubitus. Incision: Direct superior. Estimated Blood Loss: 75mL. Intravenous Fluid: 1L crystalloid. Specimens: Right femoral head. Drains: None. Complications: None. Urine output: None. Bacteriology: None. Transfusions: None. Closure: #1, 2-0 Vicryl, 3-0 Biosyn. Indications: The patient was indicated for a right total hip replacement in order to facilitate improved motion and mobilization, and to prevent the complications associated with a sedentary lifestyle. The patient was identified in the holding area by her armband. A long discussion was held with the patient regarding the risks, benefits and alternatives of the above named procedure. Risks include but are not limited to : pain, bleeding, infection, damage to surrounding structures (including nerves , blood vessels, skin, ligaments, tendons and bone), wound complications, failure of hardware/implants/reduction, need for further surgery, blood clots, myocardial infarction, pulmonary embolism, cerebrovascular insult, anaesthesia complications, compartment syndrome, limb loss, limp, loss of function, and . Benefits as mentioned above. Alternatives include no surgery. All questions were answered. The patient understood and agreed to the procedure. Informed consent was obtained, witnessed and verified. The patients correct operative limb - that is the right lower extremity - was marked, and the patient was taken to the operating room after being seen by the anesthesia and nursing staff. Procedure: The patient was brought into the operating room, placed on the OR table and secured with a safety strap. Consent and the operative site were again verified with the patient and nursing and anaesthesia staff. Anaesthesia & IV antibiotics were then administered without complication. A time out was done, led by me the attending surgeon. The patient was gently turned into the right lateral decubitus position. A Stulberg hip positioner with well-padded bolsters was used to secure the patient in the lateral decubitus position. The down arm was placed on a well-padded arm board. The up arm was brought across the patients body and placed on 2 pillows. Egg crates were placed under the down knee and ankle, and bony prominences were well padded. The operative site was then prepped and draped in the standard sterile fashion. Time out was again done and the case began. Operation: A standard Direct Superior surgical approach was utilized to access the hip joint. With a #10 blade, a skin incision was taken from the posterior-superior corner of the greater trochanter in a posterior-superior direction. This was approximately 10cm in length. Electrocautery was utilized to carry the deep dissection down to the level of the gluteus sheng fascia. Hemostasis was assured using electrocautery (bipolar and unipolar). The gluteus sheng fascia was incised, and the fibers of gluteus sheng were in line with the trajectory of the incision. This confirmed the accuracy of our planned incision based on palpated landmarks and surface anatomy. A Bacon elevator was used to split the distal fibers of gluteus sheng, in line with the fibers, just proximal to their insertion into the iliotibial band. Great care was taken not to incise the iliotibial band. Gluteus sheng fibers were split proximally using the Bacon elevator until reaching the apex of the wound. Again, hemostasis was assured. The anand-capsular fat pad was exposed utilizing curved handle bar retractors. The anand-capsular fat pad was excised off the inferior border of the gluteus medius muscle belly, exposing the insertion of the hip short external rotator muscle group. The piriformis tendon was identified and freed from adhesions to the capsule using a 90-degree clamp. This tendon was then released from its insertion using electrocautery. The tendon was tagged with a # 1 Ethibond suture and tied to the inferior aspect of the proximal wound apex. The tendon, thus, served as a sling to retract and protect the sciatic nerve. With the piriformis tendon reflected away from its insertion, the hip joint capsule was visualized. Electrocautery was used to perform a capsulotomy and synovial joint fluid was aspirated. Next, the superior leaflet of the capsule was elevated using a Bacon elevator to create separation from the underlying labrum and also to create a plane for later placement of a supra-acetabular retractor. The labrum was excised using electrocautery. The hip was then gently dislocated. A standard femoral neck cut was made using an oscillating saw. A 3/4 " osteotome was delivered into the femoral head using mallet strikes. The femoral head was then removed. Anterior, inferior, and supra-acetabular retractors were placed to expose the acetabulum. The pulvinar was excised using electrocautery. Odd sized reamers were used to prepare the acetabular bone bed. Healthy blushes of bleeding were observed from the reamed cancellous bone bed. Next, a size 52mm Erlinda Trident II-Tritanium cup was impacted into position, achieving excellent press-fit. A single, 25mm acetabular screw was inserted to provide provisional cup fixation due to the presence of a large supra- acetabular cyst. A size 36mm neutral polyethylene liner was then impacted into the cup. Excellent placement of the polyethylene liner, and excellent press fit of the cup were confirmed. Next, attention was turned to femoral preparation. The anterior and supra-acetabular retractors were removed. The cut femoral neck was then exposed using the inferior acetabular retractor around the calcar, and a straight 90-degree retractor to retract gluteus medius. The box-cutter osteotome was used with a mallet to removed bone from the lateral femoral neck. An opening reamer was delivered by hand to find the femoral canal. A lateralizing reamer was used with power to lateralize the proximal entry into the canal, so as to avoid placing the stem into varus. The femoral bone bed was then prepared using broaches with gentle mallet strikes. The tibia was used as a goniometer with which to dial in approximately 5 degrees of stem anteversion. Trial components were assembled and the hip was reduced. The hip was taken through a full range of motion and proved stable throughout this range of motion , including at the extremes of positions of compromised. All trial femoral components were removed. Another 1g of IV Ancef was administered so that the bone bed would be rich with antibiotic at the time of seating of the femoral implant. A Valley Accolade II (127-degree NSA, high offset) #4 stem was then implanted using gentle mallet strikes, diligently matching the prepared degree of stem anteversion. With the stem fully seated, a 36mm diameter, -5mm length ceramic/Biolox femoral head was then selected and implanted. The hip was once again reduced, and taken through a full range of motion. Stability was once again assured. Leg length was satisfactory. The wounds were copiously irrigated , as they had been regularly throughout the case so as to keep the retracted tissues wet, and in order to flush out wound debris. The capsule was primarily repaired using #1 Vicryl sutures in simple interrupted fashion. The tagged piriformis tendon was released and tied to the posterior-lateral corner of the greater trochanter. The remaining wounds were again irrigated. Hemostasis was assured and the wound was closed primarily using #1 and 2-0 Vicryl sutures. A 3- 0 Biosyn suture was used to perform a subcuticular wound closure. A sterile, compressive dressing was applied. The sponge and needle counts were correct at the end of the case and the attending was present and scrubbed throughout the case. The patient was then transferred into a supine position and onto the hospital bed. A standard AP-pelvis x-ray was taken, demonstrating good overall alignment with a well reduced, congruent hip. There was no evidence of subsidence, loosening, or anand-prosthetic fracture. The patient was then was then transferred to the recovery room without incident/complications and in stable condition, having tolerated the procedure well. MD CELESTINO Awan/[id number] MTDD
--- NOTE | 2018-07-29 16:26 | PATH ---
Surgical Pathology Report Patient Name: VIRGINIA PARKER Med. Rec. #: [id number] /Age/Gender: 1940 (Age: 78) / F Account: [id number] [facility] Taken: 07/23/2018 Received: 07/23/2018 Reported: 07/29/2018 Physicians: Daryl Beauchamp M.D. Specimen(s) Received RIGHT FEMORAL HEAD Clinical History Osteoarthritis right hip Final Diagnosis FEMORAL HEAD, RIGHT, TOTAL HIP REPLACEMENT: DEGENERATIVE JOINT DISEASE. Electronically Signed Darline Zaman M.D. Gross Description Received in formalin, labeled "right femoral head," is a 5.5 x 5 x 2.4 cm. femoral head. The margin of resection is smooth. The surface shows areas of granularity and eburnation. The underlying trabecular bone is yellow and hard. A patient admitting representative section is submitted in one cassette, following decalcification. AE/07/25/2018 ebram/07/25/2018
== END 2018-07-25 12:35 | disposition home health service (06) | DRG 470 ==
LOC: FM/S 05:59
PROVIDERS: ADMIT Orthopaedic Surgery Adult Reconstructive Orthopaedic Surgery; ATTEND Orthopaedic Surgery Adult Reconstructive Orthopaedic Surgery
PROC: 0SRR039 Replacement of Right Hip Joint, Femoral Surface with Ceramic Synthetic Substitute, Cemented, Open Approach (ICD-10-PCS; principal; 2018-07-25)
DX: M16.11 Unilateral primary osteoarthritis, right hip (principal); I12.9 Hypertensive chronic kidney disease with stage 1 through stage 4 chronic kidney disease, or unspecified chronic kidney disease; E11.22 Type 2 diabetes mellitus with diabetic chronic kidney disease; N18.3 Chronic kidney disease, stage 3 (moderate); E78.5 Hyperlipidemia, unspecified
CPT/HCPCS: 36415; 73502-TC-RT; 80048; 82962; 83735; 84100; 85025; 85027; 88304-TC; 88311-TC; 94760; 97116-GP; 97162-GP